=== PATIENT | male | born 1950 | race Caucasian/White ===

== ENCOUNTER 2017-08-22 09:48 | Emergency (ER) | payer MEDICARE, OTHER ==
[2017-08-22] MEDS ORDERED: Tetan/Diph/Pertus SYR(Tdap)* 0.5 ML SYR(BOOSTRIX) use SYR IM ONE (10:30)
[2017-08-22] MEDS ORDERED: Lidocaine 1%* 5 ML VIAL INJ ONE (10:30)
[2017-08-22 11:24] VITALS: BP 139/79
--- NOTE | 2017-08-22 11:35 | ED ---
Skin Complaint - HPI Summary HPI Summary: Pt. is a 67 y.o male who presents the ER for a fishing hook stuck in his distal 3rd finger of left hand. Pt. states he was fishing just prior to arrival when incident happened. Hook was used and contaminated. Last tetanus immunization was over 5 years. Symptoms are mild in severity. Touching affected area makes symptoms worse. Rest makes symptoms better. No significant past medical hx. - History of Current Complaint Chief Complaint: EDExtremityLower Time Seen by Provider: 08/22/17 10:25 Stated Complaint: FISHING LURE IN HAND Hx Obtained From: Patient Pain Intensity: 0 Pain Scale Used: 0-10 Numeric - Allergy/Home Medications Allergies/Adverse Reactions: Allergies Allergy/AdvReac Type Severity Reaction Status Date / Time meperidine [From Demerol] Allergy Nausea And Verified 08/22/17 10:11 Vomiting PMH/Surg Hx/FS Hx/Imm Hx Previously Healthy: Yes - Immunization History Immunizations Up to Date: No Infectious Disease History: No Infectious Disease History: Denies: Traveled Outside the [place] in Last 30 Days - Social History Occupation: Employed Full-time Lives: With Family Alcohol Use: Occasionally Substance Use Type: Reports: None Smoking Status (MU): Never Smoked Tobacco Review of Systems Positive: Other - Fishing hook to 3rd finger of left hand All Other Systems Reviewed And Are Negative: Yes Physical Exam Triage Information Reviewed: Yes Vital Signs On Initial Exam: Initial Vitals Temp Pulse Resp BP Pulse Ox 98.5 F 77 15 136/87 96 08/22/17 10:08 08/22/17 10:08 08/22/17 10:08 08/22/17 10:08 08/22/17 10:08 Vital Signs Reviewed: Yes Appearance: Positive: Well-Appearing - Pt. sitting on bed in NAD. Skin: Positive: Dry Head/Face: Positive: Normal Head/Face Inspection Eyes: Positive: Normal Neck: Positive: Supple Musculoskeletal: Positive: Other - Fishing hook noted to the distal 3rd digit of right hand on the palmar aspect. Full ROM of the digit. Neurological: Positive: Normal, CN Intact II-III Psychiatric: Positive: Affect/Mood Appropriate Procedures - Procedure Summary Procedure Summary: 1cc lidocaine injected into distal 3rd digit of left hand. Fishing hook was cut with wire cutters and hook was pushed through the skin and easily removed. Wound was then irrigated and cleaned with hibiclens. Sterile dressing placed. Pt. tolerated well. Diagnostics - Vital Signs Vital Signs Temp Pulse Resp BP Pulse Ox 08/22/17 11:22 98.3 F 66 18 139/79 97 08/22/17 10:08 98.5 F 77 15 136/87 96 - Laboratory Lab Statement: Any lab studies that have been ordered have been reviewed, and results considered in the medical decision making process. Course/Dx - Course Course Of Treatment: Pt. presenting with a fishing hook in finger. It was easily removed as noted above. Tetanus was updated. Will prophylactically treat with Keflex. Advised pt. to keep wound clean and dry. Tylenol or Motrin for pain as directed. F.u with PCP for wound check. Return to ER for redness, swelling or drainage from wound. Pt. understands and agrees with plan. - Diagnoses Provider Diagnoses: Fishing hook foreign body Discharge - Sign-Out/Discharge Documenting (check all that apply): Patient Departure - Discharge Plan Condition: Good Disposition: HOME Prescriptions: Cephalexin CAP* [Keflex CAP*] 500 mg PO BID #20 cap Patient Education Materials: Puncture Wound (ED) Referrals: No Primary Care Phys,NOPCP [Primary Care Provider] - Additional Instructions: Follow up with your PCP Take antibiotic as directed Keep wound clean and dry Return to ER for redness, swelling or drainage from wound - Billing Disposition and Condition Condition: GOOD Disposition: Home
== END 2017-08-22 11:22 | disposition home or self-care (01) ==
LOC: ED 09:48
DX: S61.243A Puncture wound with foreign body of left middle finger without damage to nail, initial encounter (principal); W26.8XXA Contact with other sharp object(s), not elsewhere classified, initial encounter; Y93.89 Activity, other specified; Y92.9 Unspecified place or not applicable; Z23 Encounter for immunization
CPT/HCPCS: 90471; 90715; 99282